=== PATIENT | female | born 1965 ===

== ENCOUNTER 2017-08-26 07:32 | Day surgery (SDC) | payer OTHER ==
[2014-07-04 10:22] VITALS: BMI 24.6
[2017-08-26] MEDS ORDERED: Lactated Ringer's 500 ML IV ONE (08:36)
[2017-08-26] MEDS ORDERED: Midazolam 2 MG/2 ML VIAL ONE (09:45)
[2017-08-26] MEDS ORDERED: Propofol 10 mg/ml Inj (20 ML) ONE (09:46)
[2017-08-26 10:31] VITALS: TEMP 98
[2017-08-26 11:03] VITALS: BP 103/67; PULSE 59; RESP 16; O2SAT 100
== END 2017-08-26 11:24 | disposition home or self-care (01) ==
LOC: H.ENDO 07:32
PROVIDERS: ATTEND Internal Medicine Gastroenterology
DX: Z12.11 Encounter for screening for malignant neoplasm of colon (principal); K57.30 Diverticulosis of large intestine without perforation or abscess without bleeding; K64.0 First degree hemorrhoids; Z80.0 Family history of malignant neoplasm of digestive organs; K29.70 Gastritis, unspecified, without bleeding; R12 Heartburn; K30 Functional dyspepsia
CPT/HCPCS: 43239; 45378; 88305; J2250; J2704; J7120